=== PATIENT | female | born 1985 | race American Indian/Alaskan Native ===

== ENCOUNTER 2016-08-24 10:50 | Emergency (ER) | payer OTHER, MEDICAID ==
[2016-08-24 10:50] VITALS: BMI 21.3
[2016-08-24 11:25] VITALS: TEMP 98.4
[2016-08-24 11:30] VITALS: BP 106/70; PULSE 79; RESP 20
--- NOTE | 2016-08-24 11:34 | C.PDOC ---
Time Seen by Provider: 08/24/16 11:23 Chief Complaint (Nursing): Headache Past Medical History Vital Signs: Last Vital Signs Temp 99.4 F 08/24/16 11:03 Pulse 96 H 08/24/16 11:03 Resp 14 08/24/16 11:03 BP 135/80 08/24/16 11:03 Pulse Ox 99 08/24/16 11:03 Family History: States: Unknown Family Hx - Social History Hx Tobacco Use: No Hx Alcohol Use: No Hx Substance Use: No - Immunization History Hx Tetanus Toxoid Vaccination: No Hx Influenza Vaccination: No Hx Pneumococcal Vaccination: No ED Course And Treatment O2 Sat by Pulse Oximetry: 99
[2016-08-24 11:35] VITALS: O2SAT 100
--- NOTE | 2016-08-24 11:43 | C.PDOC ---
History Of Present Illness 31 yr old female, who is 7 weeks , presents to the ER s/p head injury, sustained around 0600 today while at work. Patient states the edge of a crate was sticking out from a shelf and struck her to the left upper side of scapular area. Patient states she was seen and evaluated at a [facility] , was treated with Tylenol and instructed to return to work but is here requesting a second opinion. Patient reports of pain to the area but no bleeding. Denies vision changes, nausea, vomiting, neck pain, weakness or numbness. Patient denies abdominal trauma, no vaginal bleeding. Time Seen by Provider: 08/24/16 11:23 Chief Complaint (Nursing): Headache History Per: Patient History/Exam Limitations: no limitations Onset/Duration Of Symptoms: Sudden Onset (Few Hours Ago ) Past Medical History Reviewed: Historical Data, Nursing Documentation, Vital Signs Vital Signs: Last Vital Signs Temp 98.4 F 08/24/16 11:26 Pulse 79 08/24/16 11:26 Resp 20 08/24/16 11:26 BP 106/70 08/24/16 11:26 Pulse Ox 100 08/24/16 11:43 Family History: States: No Known Family Hx - Social History Hx Tobacco Use: No Hx Alcohol Use: No Hx Substance Use: No - Immunization History Hx Tetanus Toxoid Vaccination: No Hx Influenza Vaccination: No Hx Pneumococcal Vaccination: No Review Of Systems Except As Marked, All Systems Reviewed And Found Negative. Eyes: Negative for: Vision Change Gastrointestinal: Negative for: Nausea, Vomiting Genitourinary: Negative for: Vaginal Bleeding Musculoskeletal: Negative for: Neck Pain Neurological: Positive for: Other (Head inury with pain to the left upper side ) . Negative for: Weakness, Numbness Physical Exam - Physical Exam Appears: Well, Non-toxic Skin: Warm, Dry Head: Normacephalic, Other ((+) Mild swelling to the scapula with local tenderness to the left upper periorbital area. (-) No depression. Skin intact. ) Eye(s): bilateral: Normal Inspection, PERRL, EOMI Neck: Normal, Normal ROM, Supple Chest: Symmetrical, No Tenderness Cardiovascular: Rhythm Regular, No Murmur Respiratory: Normal Breath Sounds, No Rales, No Rhonchi, No Stridor, No Wheezing Extremity: Normal ROM, No Swelling Neurological/Psych: Oriented x3, Normal Speech, Normal Motor, Normal Sensation ED Course And Treatment O2 Sat by Pulse Oximetry: 100 Medical Decision Making Medical Decision Making: NOTE: Discussed the risk benefits regarding radiation exposure. Patient is informed she is not in in need of immediate CT. Instructed to use Tylenol and ice the area. Disposition Counseled Patient/Family Regarding: Diagnosis, Need For Followup - Disposition Referrals: [facility] [Outside] [facility] [Outside] Disposition: HOME/ ROUTINE Disposition Time: 11:42 Condition: GOOD Instructions: Head Injury (ED) - Clinical Impression Clinical Impression: Head injury - Scribe Statement The provider has reviewed the documentation as recorded by the Scribe Amisha Ashton Provider Attestation: All medical record entries made by the Scribe were at my direction and personally dictated by me. I have reviewed the chart and agree that the record accurately reflects my personal performance of the history, physical exam, medical decision making, and the department course for this patient. I have also personally directed, reviewed, and agree with the discharge instructions and disposition.
== END 2016-08-24 12:00 | disposition home or self-care (01) ==
LOC: C.ER 10:50
DX: O9A.211 Injury, poisoning and certain other consequences of external causes complicating pregnancy, first trimester (principal); S09.90XD Unspecified injury of head, subsequent encounter; Z3A.01 Less than 8 weeks gestation of pregnancy; W22.09XD Striking against other stationary object, subsequent encounter

== ENCOUNTER 2017-02-07 21:49 | Emergency (ER) | payer MEDICAID, OTHER ==
--- NOTE | 2017-02-07 22:26 | OBHP ---
Datetime: 02/07/2017 22:13 IP Adm Impression: , intrauterine ; No Active Labor IP Chief Complaint Other: Pelvic Pressure IP Admit Plan: Observation/Evaluation; Discharge home Admit Comment, IP Provider: 31yo with IUP at 31.2wks presents with pelvic pressure. Denies any VB or LOF. Reports frequency but denies dysuria. Previous uncomplicated vaginal delivery at term. PNC at [facility]. TOCO- occasional, FHR- Category 1, Cx- 0/0/-2, Vtx felt Assessment: IUP at 31.5wks Pelvic Pressure No Active labor Plan: UA, Encourage fluid intake. D/C Home if UA is negative. F/U with [facility] within 1 week. Abdomen - PN: Normal Back - PN: Normal Lungs - PN: Normal Heart - PN: Normal Neurologic - PN: Normal General - PN: Normal Presentation-Admit: Vertex FHR - Baseline A Provider: 130s Membranes, Provider: Intact Gestation - Est Wks by US: 31.5 EGA AdmitDate IP: 31.5 Vital Signs Provider: Reviewed IP Chief Complaint: Maternal discomfort NICHD Variability Prov Fetus A: Moderate 6-25bpm NICHD Accel Fetus A IP Provider: 15X15 FHR Category Provider Fetus A: Category I NICHD Decel Fetus A IP Provider: None Dilatation, Provider: 0 Effacement, Provider: 0 Station, Provider: -3
[2017-02-08 02:56] VITALS: BP 95/61; PULSE 98; RESP 18; TEMP 97.8; O2SAT 97
== END 2017-02-07 22:40 | disposition home or self-care (01) ==
LOC: C.EROB 21:49
DX: O26.893 Other specified pregnancy related conditions, third trimester (principal); R10.2 Pelvic and perineal pain; Z3A.31 31 weeks gestation of pregnancy

== ENCOUNTER 2017-04-15 19:10 | Inpatient (IN) | payer MEDICAID ==
[2017-04-15 20:38] LABS: BASO # 0.1 K/uL (0.0-0.2); BASO % 0.6 % (0.0-2.0); EOS % 0.5 % (0.0-4.0); LYMPH # 1.2 K/uL (1.0-4.3); LYMPH % 11.5 % (20.0-40.0); MEAN CORPUSCULAR HGB CONC 34.4 g/dL (33.0-37.0); MEAN PLATELET VOLUME 10.1 fL (7.2-11.7); MONO # 0.6 K/uL (0.0-0.8); MONO % 5.1 % (0.0-10.0); NEUT # 8.9 K/uL (1.8-7.0); NEUT % 82.3 % (50.0-75.0); NRBC % 0.1 % (0.0-2.0); RBC 3.55 Mil/uL (3.80-5.20); RED CELL DISTRIBUTION WIDTH 13.3 % (11.5-14.5); WHITE BLOOD COUNT 10.8 K/uL (4.8-10.8)
[2017-04-15 20:43] LABS: MEAN CELL VOLUME 90.2 fL (81.0-99.0); SQUAMOUS EPITHIAL 1 /hpf (0-5); URINE BACTERIA RARE (<OCC); URINE BILIRUBIN NEGATIVE (NEGATIVE); URINE BLOOD NEGATIVE (NEGATIVE); URINE CLARITY Clear (Clear); URINE COLOR Straw (YELLOW); URINE GLUCOSE (UA) NORMAL (Normal); URINE LEUKOCYTE ESTERASE NEG Leu/uL (Negative); URINE NITRATE NEGATIVE (NEGATIVE); URINE PROTEIN NEGATIVE (NEGATIVE); URINE UROBILINOGEN NORMAL mg/dL (0.2-1.0)
--- NOTE | 2017-04-15 20:48 | OBHP ---
Datetime: 04/15/2017 20:43 IP Adm Impression: Term, intrauterine IP Admit Plan: Admit to unit; Initiate labor induction protocol Admit Comment, IP Provider: 31yo with IUP at 41.2wks presents with pelvic pressure on and off x 1 week. 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 hx of abnormal pap, fibroids, ovarian cyst, STI PMH: Denies PSH: DxC FHX: non contibutory MEDS: PNV, Valtrex NKDA A/P @ 41.2 wks GA for IOL -admit to L+D -npo, ivf -admission labs -cont toco adn efm -cervidl -analgesia prn Pelvic Type - PN: Adequate Extremities - PN: Normal Abdomen - PN: Normal Back - PN: Normal Breast - PN: Not Done Lungs - PN: Normal Heart - PN: Normal Thyroid - PN: Normal Neurologic - PN: Normal HEENT - PN: Normal General - PN: Normal Weight - Estimated: 3400 Presentation-Admit: Vertex FHR - Baseline A Provider: 125 Membranes, Provider: Intact Gestation - Est Wks by US: 41.2 EGA AdmitDate IP: 41.2 Vital Signs Provider: Reviewed; Within Normal Limits IP Chief Complaint: Other NICHD Variability Prov Fetus A: Moderate 6-25bpm NICHD Accel Fetus A IP Provider: 15X15 FHR Category Provider Fetus A: Category I NICHD Decel Fetus A IP Provider: None Dilatation, Provider: 0 Effacement, Provider: 0 Station, Provider: -3 Genitourinary Exam: Normal DTRs - PN: Normal
[2017-04-15 20:51] LABS: ALBUMIN 3.5 g/dL (3.5-5.0); BLOOD UREA NITROGEN 10 mg/dL (7-17); CALCIUM 8.2 mg/dl (8.6-10.4); GFR AFRICAN-AMERICAN > 60; GFR NON-AFRICAN AMERICAN > 60
[2017-04-15 20:52] LABS: ALT/SGPT 23 U/L (9-52); AST/SGOT 27 U/L (14-36)
--- NOTE | 2017-04-15 20:52 | OBADHP ---
Datetime: 04/15/2017 20:43 Admit Comment, IP Provider: 31yo with IUP at 41.2wks presents with pelvic pressure on and off x 1 week. pt dnies any ctx, lof, vb, +Fm Ante: pnc at 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 of abnormal pap, fibroids, ovarian cyst, STI PMH: Denies PSH: DxC FHX: non contibutory MEDS: PNV, Valtrex NKDA A/P @ 41.2 wks GA for IOL -admit to L+D -npo, ivf -admission labs -cont toco adn efm -cervidl -analgesia prn Pelvic Type - PN: Adequate Extremities - PN: Normal Abdomen - PN: Normal Back - PN: Normal Breast - PN: Not Done Lungs - PN: Normal Heart - PN: Normal Thyroid - PN: Normal Neurologic - PN: Normal HEENT - PN: Normal General - PN: Normal Weight - Estimated: 3400 Presentation-Admit: Vertex FHR - Baseline A Provider: 125 Membranes, Provider: Intact Comments, ACOG Physical Exam: External vinay Gestation - Est Wks by US: 41.2 Vital Signs Provider: Reviewed; Within Normal Limits IP Chief Complaint: Other NICHD Variability Prov Fetus A: Moderate 6-25bpm NICHD Accel Fetus A IP Provider: [id number] FHR Category Provider Fetus A: Category I NICHD Decel Fetus A IP Provider: None Dilatation, Provider: 0 Effacement, Provider: 0 Station, Provider: -3 Genitourinary Exam: Normal DTRs - PN: Normal EGA AdmitDate IP: 41.2 IP Adm Impression: Term, intrauterine IP Admit Plan: Admit to unit; Initiate labor induction protocol Datetime: 02/07/2017 22:13 IP Chief Complaint Other: Pelvic Pressure
[2017-04-15] MEDS: Lactated Ringer's 1,000 ML IV SCH (20:59)
[2017-04-16] MEDS: Lactated Ringer's 1,000 ML IV SCH (05:27)
[2017-04-16] MEDS ORDERED: Nalbuphine 20 mg/ml Inj (1 ml) IVP PRN (05:30)
[2017-04-16] MEDS ORDERED: Oxytocin 30 UNIT 30 UNITS/500 ML BAG IV ONE (09:29)
[2017-04-16] MEDS ORDERED: Oxytocin 30 UNIT 30 UNITS/500 ML BAG IV SCH (09:30)
[2017-04-16] MEDS ORDERED: Bupivacaine HCl 0.25% PF (10 ml) Inj ONE (12:13)
[2017-04-16] MEDS ORDERED: Bupivacaine 0.125%/FentaNYL 200 ML EPI ONE (12:14)
[2017-04-16] MEDS ORDERED: Lidocaine 2% Inj (20ml) ONE (14:02)
[2017-04-16] MEDS ORDERED: cefOXitin IV 2 gm in Dextrose 2 GM/50 ML BAG IVPB SCH (16:45)
[2017-04-16] MEDS ORDERED: Oxycodone/Acetaminophen 5/325 mg Tab PO PRN ×2 (18:27)
--- NOTE | 2017-04-16 18:27 | OBDS ---
DELIVERY PERSONNEL Delivery Doctor: Neris Cristobal MD Ore Mixer: jerald Anesthesiologist: luis e Resident: tyrel MATERNAL INFORMATION Delivery Anesthesia: Epidural Estimated Blood Loss (ml): 300 Provider Comments: of a male from YEYO position nuchalx1 around neck tigt.codr clamoed anc cut,body and shoulders delivered withput difficulty infant place don maternal abdoemn cord segment taken for cord blood ph cord blood collected placenta spontaneiusly delivered second degree perineal lac repaired with 2-0 chromic fundus firm patient stable LABOR SUMMARY EDC: 04/06/2017 00:00 No. Babies in Womb: 1 Attempted: No Labor Anesthesia: Epidural LABOR INFORMATION Reason for Induction: Postterm Cervical Ripening Agents: Cervidil (Annotations: 10 mg vaginally) Oxytocin: Augmentation Group B Beta Strep: Negative Steroids Given: None Reason Steroids Not Administered: Not Applicable MEMBRANES Membranes Rupture Method: Spontaneous Rupture of Membranes: 04/16/2017 16:57 Length of Rupture (hrs): 0.50 Amniotic Fluid Color: Light Meconium Amniotic Fluid Amount: Small Amniotic Fluid Odor: None STAGES OF LABOR Stage 3 hrs: 0 Stage 3 min: 28 VAGINAL DELIVERY Episiotomy: None Laceration Extension: Second Degree Laceration Type: Vaginal Laceration Repair: Yes Laceration Repair Note: second degree perineal lac repaired with 2-0 chromic Initial Vag Sponge Count: 10 Final Vag Sponge Count: 10 Initial Vag Sharps Count: 1 Final Vag Sharps Count: 1 Sponge Count Correct: Yes Sharps Count Correct: Yes Count Comment: dr cristobal and BABY A INFORMATION Infant Delivery Date/Time: 04/16/2017 17:27 Method of Delivery: Vaginal Born in Route : No : N/A Forceps: N/A Vacuum Extraction: N/A Shoulder Dystocia : No SHOULDER DYSTOCIA BABY A Delivery Date/Time: 04/16/2017 17:27 PRESENTATION/POSITION BABY A Presentation: Cephalic Cephalic Presentation: Vertex Vertex Position: Left Occipital Anterior Breech Presentation: N/A PLACENTA INFORMATION BABY A Placenta Delivery Time : 04/16/2017 17:55 Placenta Method of Delivery: Spontaneous Placenta Status: Delivered SCORES BABY A Heart Rate 1 min: >100 bpm Resp Effort 1 min: Good Cry Reflex Irritability 1 min: Cough or Sneeze or Pulls Away Muscle Tone 1 min: Active Motion Color 1 min: Body [place], Extremities Blue SCORE 1 MIN: 9 Heart Rate 5 min: >100 bpm Resp Effort 5 min: Good Cry Reflex Irritability 5 min: Cough or Sneeze or Pulls Away Muscle Tone 5 min: Active Motion Color 5 min: Body [place], Extremities Blue SCORE 5 MIN: 9 INFORMATION BABY A Gestational Age at Delivery: 41.3 Gestational Status: Post-term Infant Outcome : Liveborn Infant Condition : Stable Infant Sex: Male IDENTIFICATION/MEDS BABY A ID Band Number: [id number] ID Band Location: Left Leg; Left Arm Sensor Applied: Yes Sensor Number: [id number] Sensor Location : Left Leg; Left Arm Vitamin K Given : Not Given Erythromycin Given: Not Given WEIGHT/LENGTH BABY A Infant Birthweight (gms): 3115 Weight (lb): 6 Weight (oz): 14 Length Inches: 19.75 Length cms: 50.2 CORD INFORMATION BABY A No. Cord Vessels: 3 Nuchal Cord : Around Neck x1, Tight Infant Cord pH Baby Venous: 7.18 Cord Blood Taken: Yes Infant Suction: Mouth; Nose ASSESSMENT BABY A Infant Complications: None Physical Findings at Delivery: Within Normal Limits Infant Respirations: Appears Normal Regulatory Affairs Associate/ALS Called : No Care By: anshul
[2017-04-17] MEDS: Benzocaine/Menthol 20%-0.5% Topical Spray (60 ml) TOP SCH ×2 (00:30→06:09)
[2017-04-17] MEDS ORDERED: cefOXitin 2 GM in Sodium Chloride 0.9% 100 ML IV SCH (01:30)
[2017-04-17 08:03] LABS: BASO # 0.1 K/uL (0.0-0.2); BASO % 0.4 % (0.0-2.0); EOS # 0.1 K/uL (0.0-0.7); EOS % 0.5 % (0.0-4.0); HEMOGLOBIN 10.7 g/dL (11.0-16.0); LYMPH # 1.3 K/uL (1.0-4.3); LYMPH % 9.2 % (20.0-40.0); MEAN CELL VOLUME 90.8 fL (81.0-99.0); MEAN CORPUSCULAR HEMOGLOBIN 30.9 pg (27.0-31.0); MEAN PLATELET VOLUME 10.2 fL (7.2-11.7); MONO # 0.7 K/uL (0.0-0.8); NEUT # 12.2 K/uL (1.8-7.0); NEUT % 84.9 % (50.0-75.0); NRBC % 0.1 % (0.0-2.0); PLATELET COUNT 220 K/uL (130-400); RBC 3.46 Mil/uL (3.80-5.20); RED CELL DISTRIBUTION WIDTH 13.3 % (11.5-14.5); WHITE BLOOD COUNT 14.4 K/uL (4.8-10.8)
--- NOTE | 2017-04-17 08:08 | OBPPN ---
Datetime: 04/17/2017 08:05 PP Pain Prov: Within normal limits PP Nausea Prov: Denies PP Flatus Prov: Yes PP Abdomen/Uterus Prov: Normal PP Lochia Prov: Normal PP Extremities Prov: Normal PP Comments Phys Exam Prov: fudus below umblicus ext no edema,no calf ten PP Impression Prov: Normal progression PP Plan Prov: Continue present management PP Progress Note Prov: pt was seen at bed side, pain under control,no n/v, tolerating deit,voiding,m in locha ppd#1 s/p cont pp care cont pain ma reg deit Vital Signs Provider PP: Reviewed; Within Normal Limits
[2017-04-17] MEDS: Multiple Vitamins Tab PO SCH (09:38)
[2017-04-17 10:38] LABS: LYMPHOCYTE 9 % (20-40); MONOCYTE 6 % (0-10); NEUTROPHIL 85 % (50-75); PLATELET ESTIMATE NORMAL (NORMAL); TOTAL CELLS COUNTED 100
[2017-04-17 10:39] LABS: LARGE PLATELETS PRESENT
[2017-04-18] MEDS: Multiple Vitamins Tab PO SCH (10:21)
--- NOTE | 2017-04-18 16:47 | OBPPN ---
Datetime: 04/18/2017 08:29 PP Nausea Prov: Denies PP Flatus Prov: Yes PP BM Prov: No PP Heart Prov: Normal PP Lungs Prov: Normal PP Abdomen/Uterus Prov: Normal PP Lochia Prov: Normal PP Extremities Prov: Normal PP Comments Phys Exam Prov: Abdomen: Soft, non-tender, fundus is firm and below the umbilicus PP Impression Prov: Normal progression PP Plan Prov: Discharge PP Progress Note Prov: Patient was seen and examined at bedside. Patient reports that she is doing w ell and pain is well-controlled. Patient admits mild lochia, passing flatus, urinating without diffic ulty but denies bowel movement. Patient is tolerating diet and ambulating without difficulty. Patient is breast feeding and bottle feeding. 10.8>11.0/32.0<259 14.4>10.7/31.4<220 O+, rubella Immune VS: BP: 110/70 HR:72, Temp: 97.8 Physical Examination: Gen: Well appearing, NAD Cardio: RRR, normal S1, S2 Abdomen: Soft, non-tender, fundus is firm and at the umbilicus Ext: No edema, no clubbing and no cyanosis A/P: Patient is a 32 year at 41.2 weeks who is now S/P with 2nd degree lacera tion PPD#2 1. Stable, Afebrile 2. Pain well-controlled 3. Continue hydration and ambulation 4. Continue breast feeding 5. Discharge home today: Pelvic rest for 6 weeks, will f/u up in clinic [address] Mccormick as i nstructed, continue hydration and ambulation, continue breast feeding, continue ferrous sulfate 325mg PO daily and Motrin for pain control. 6. Plans discussed with attending Mariela Sims DO, PGY-1 Attending Note: patient seen and evaluated with Resident. I agree with the above as documented. Vital Signs Provider PP: Reviewed; Within Normal Limits
--- NOTE | 2017-04-18 17:33 | OBDCSUM ---
Datetime: 04/18/2017 08:58 Discharged to, Provider: Home Follow up at, Provider: [facility] Disch Instr Activity: Normal activity; May be up to bathroom; May be up for meals; May Shower Disch Instr Diet: Regular Discharge Diet restrict Prov: none Discharge Diagnosis, Provider: Term Delivered Discharge Time: 04/18/2017 10:00 Follow up in weeks, Provider: 6 weeks Disch Referrals: None Contraception discussed, Prov: Yes Disch Activity Restrictions: No lifting; No sexual activity; Nothing in vagina - [place], tampon s, douche Discharge Comment, Provider: Pelvic rest and nothing per vaginal for 6 weeks f/u up in clinic [address] Mccormick as instructedby provider continue hydration and ambulation continue breast feeding continue ferrous sulfate 325mg PO daily and Motrin for pain control. Please return to the hospital with symptoms of fever, chills, nausea, vomiting, abnormal vaginal d ischarge or vaginal bleeding. Discharge Diagnosis Prov Other: at 41.2 weeks Anemia Contraception counseling Contraception after Delivery: Undecided
[2017-04-18 17:58] VITALS: BP 100/64; PULSE 89; RESP 20; TEMP 97.9; O2SAT 99
== END 2017-04-18 21:15 | disposition home or self-care (01) | DRG 373 ==
LOC: C.EROB 19:10 → C.4D 19:57 → C.4M 04-16 20:30
PROVIDERS: ADMIT Obstetrics & Gynecology; ATTEND Obstetrics & Gynecology
PROC: 10E0XZZ Delivery of Products of Conception, External Approach (ICD-10-PCS; principal; 2017-04-15)
PROC: 0KQM0ZZ Repair Perineum Muscle, Open Approach (ICD-10-PCS; 2017-04-15)
DX: O48.0 Post-term pregnancy (principal); O69.1XX0 Labor and delivery complicated by cord around neck, with compression, not applicable or unspecified; O99.02 Anemia complicating childbirth; O70.1 Second degree perineal laceration during delivery; Z3A.41 41 weeks gestation of pregnancy; Z37.0 Single live birth